=== PATIENT | female | born 1995 | race Caucasian/White ===

== ENCOUNTER 2022-01-08 02:28 | Emergency (ER) | payer MEDICAID ==
[~2022-01-08] VITALS: Ht 167.6 cm; Wt 68.0 kg
[2022-01-08] MEDS ORDERED: LORAZEPAM 1MG TABLET PO ONE (08:30)
[2022-01-08 10:03] VITALS: BP 97/57
== END 2022-01-08 10:04 | disposition home or self-care (01) ==
LOC: ER 02:28
DX: F41.9 Anxiety disorder, unspecified (principal); F15.10 Other stimulant abuse, uncomplicated; F17.200 Nicotine dependence, unspecified, uncomplicated; J45.909 Unspecified asthma, uncomplicated
CPT/HCPCS: 81025; 99283